=== PATIENT | male | born 1950 | race Caucasian/White ===

== ENCOUNTER 2021-06-06 09:24 | Day surgery (SDC) | payer OTHER ==
[2021-06-03 10:17] VITALS: BMI 28.3
[2021-06-06] MEDS ORDERED: Lidocaine 1% MPF 2 ML VIAL ONE (10:03)
[2021-06-06] MEDS ORDERED: PROPOFOL 40 ML ONE (10:47)
[2021-06-06] MEDS ORDERED: Lidocaine 4% PF 5 ML AMP ONE (11:25)
== END 2021-06-06 12:10 | disposition home or self-care (01) ==
LOC: CSHSDC 09:24
PROVIDERS: ATTEND Internal Medicine Gastroenterology
DX: Z12.11 Encounter for screening for malignant neoplasm of colon (principal); K74.60 Unspecified cirrhosis of liver; I85.10 Secondary esophageal varices without bleeding; K29.50 Unspecified chronic gastritis without bleeding; D12.2 Benign neoplasm of ascending colon; K76.6 Portal hypertension; K31.89 Other diseases of stomach and duodenum; D64.9 Anemia, unspecified; K31.7 Polyp of stomach and duodenum; K64.9 Unspecified hemorrhoids
CPT/HCPCS: 88305; J2704